=== PATIENT | female | born 1995 ===

== ENCOUNTER 2017-10-24 19:39 | Emergency (ER) | payer BC, SELFPAY ==
[2017-10-24 19:56] VITALS: BP 141/87; PULSE 60; RESP 15; TEMP 36.8; O2SAT 100
--- NOTE | 2017-10-24 20:13 | ED.ALLEREA ---
HPI - Allergic Reaction General Chief complaint: Allergic Reaction Stated complaint: STOMACH PAIN AND HIVES Time Seen by Provider: 10/24/17 20:07 Source: patient Mode of arrival: ambulatory Limitations: no limitations History of Present Illness HPI narrative: Patient is a 22-year-old female who presents with all abdominal pain. She said that she ate 1 raw oyster of between 4 and 5. She feels like her face has hives and is itching. She denies any tongue swelling lip swelling or difficulty breathing. She has not vomited she has not had any diarrhea she has no other hives anywhere else. At everyone else ate multiple oysters no one else is sick. She had 150 over needed he 25 of Benadryl and some Tums she overall is not feeling any better. MD complaint: allergic reaction Review of Systems Review of Systems All systems reviewed & are unremarkable except as noted in HPI and below Constitutional Denies chills, Denies fever(s), Denies lethargy and Denies weakness Eyes Denies change in vision, Denies eye discharge, Denies irritation and Denies loss of vision Cardiovascular Denies chest pain, Denies irregular heart rhythm, Denies lightheadedness, Denies palpitations, Denies dyspnea, Denies dyspnea on exertion and Denies orthopnea Respiratory Denies cough, Denies dyspnea, Denies dyspnea on exertion and Denies wheezing Gastrointestinal Gastrointestinal: Reports abdominal pain, Denies diarrhea, Denies nausea and Denies vomiting Musculoskeletal Denies back pain, Denies muscle weakness, Denies numbness and Denies tingling Integumentary/Breasts Denies pruritus, Denies erythema, Denies rash and Denies wounds Neurologic Denies loss of vision, Denies numbness, Denies tingling and Denies weakness Endocrine Denies palpitations Allergic/Immunologic Denies wheezing [facility] Medical History Healthy adult (Acute) Social History Smoking Status: Never smoker alcohol intake: never substance use type: does not use Exam Initial Vital Signs Initial Vital Signs: Vital Signs Temperature 98.2 F 10/24/17 19:56 Pulse Rate 60 10/24/17 19:56 Respiratory Rate 15 10/24/17 19:56 Blood Pressure 141/87 H 10/24/17 19:56 Pulse Oximetry 100 10/24/17 19:56 GENERAL: Well-appearing, well-nourished and in no acute distress. HEENT: Head atraumatic,EOMI, pupils reactive, no lip swelling no tongue swelling no stridor no airway compromise no hoarseness of voice CARDIOVASCULAR: Regular rate and rhythm without murmurs, rubs or gallops. RESPIRATORY: Breath sounds equal bilaterally, no wheezes rales or rhonchi. ABDOMEN: Soft, nontender. Normoactive bowel sounds all 4 quadrants. No guarding or rebound. EXTREMITIES: Normal range of motion, no clubbing or edema. Neurovascularly intact NEUROLOGICAL: Alert and oriented x4.Normal gait and speech. Cranial nerves II through XII grossly intact. SKIN: Warm, dry, no laceration, no petechiae, no rashes or lesions. Course Orders Ordered: Discontinued Medications Diphenhydramine HCl (Benadryl) 25 mg PO NOW ONE Stop: 10/24/17 20:12 Last Admin: 10/24/17 20:22 Dose: 25 mg Prednisone (Deltasone) 60 mg PO NOW ONE Stop: 10/24/17 20:12 Last Admin: 10/24/17 20:22 Dose: 60 mg Vital Signs - 8 hr 10/24/17 19:56 10/24/17 20:46 10/24/17 21:09 Temperature 98.2 F Pulse Rate 60 62 60 Respiratory Rate 15 16 Blood Pressure 141/87 H 123/85 H Blood Pressure [Left Arm] 123/85 H Pulse Oximetry 100 99 100 MDM - Allergic Reaction MDM Narrative Medical decision making narrative: She overall has very little allergic symptoms. No sign of anaphylaxis. She has had no nausea or vomiting here in the ED. Her stomach seems to be mildly upset. She feels ready and able to go home. Discussed warning signs the patient and family. All questions have been addressed. Discharge Plan Departure Patient Disposition: Home, Self-Care Clinical Impression: Allergic reaction Discharge Date/Time: 10/24/17 21:09 Interventions: ED Discharge Assessment Last Done: 10/24/17 21:09 Instructions: Anaphylaxis, DI for General Allergic Reactions Activity Restrictions/Additional Instructions: *You have been diagnosed with possible allergic reaction versus upset stomach *What to do: Monitor for or airway problems at this time no sign of severe allergic reaction *Continue to take medications as directed -Benadryl 25-50 mg every 6 hr if needed for hives or itching *Follow up with your primary care provider in 2-3 days *Return to ER if you should have difficulty breathing, lip swelling, tongue swelling or any new, worsening or concerning symptoms
[2017-10-24] MEDS: diphenhydrAMINE 25 MG TABLET PO (20:22)
[2017-10-24] MEDS: predniSONE 20 MG TABLET 60 MG PO (20:22)
[2017-10-24 20:46] VITALS: BP 123/85; PULSE 62; RESP 16; O2SAT 99
[2017-10-24 21:09] VITALS: BP 123/85; PULSE 60; O2SAT 100
== END 2017-10-24 21:09 | disposition home or self-care (01) ==
PROVIDERS: Emergency Provider Emergency Medicine
DX: T78.1XXA Other adverse food reactions, not elsewhere classified, initial encounter (principal)
CPT/HCPCS: 99282; 99283